=== PATIENT | female | born 1950 | race Hispanic/Latino ===

== ENCOUNTER → 2020-12-02 | Outpatient (CLI) | payer OTHER, MEDICARE ==
[~2020-12-02] MED LIST: AEC81 PO; ASCORBIC ACID PO; CILO100T PO; CLOP75TA14 PO; CYAN50TA2 PO; ESCI20TA38 PO; FISH OIL PO; FOLI1TAB15 PO; GABA-531 PO; IOHEXOL 350 MG/ML 100ML INFUS..BTL IV ONE; IOHEXOL-350 50ML VIAL IV ONE; ISOS30TA92 PO; LORA2TAB2 PO; METO50TA18 PO; MULT-40 PO; NITR0.4T SL; OXCA300T28 PO; PANT40TA54 PO; PRAV20TA4 PO; RANO10003 PO; VITAMIN E PO
== END | disposition home or self-care (01) ==
LOC: RAH 09:00
PROVIDERS: ATTEND Internal Medicine Cardiovascular Disease
DX: I71.4 Abdominal aortic aneurysm, without rupture (principal); J43.9 Emphysema, unspecified; I70.202 Unspecified atherosclerosis of native arteries of extremities, left leg; I70.291 Other atherosclerosis of native arteries of extremities, right leg
CPT/HCPCS: 75635; Q9967 ×2